=== PATIENT | female | born 1970 | race Caucasian/White ===

== ENCOUNTER 2019-10-26 13:52 | Emergency (ER) | payer MEDICAID ==
[~2019-10-26] VITALS: Ht 142.2 cm; Wt 74.8 kg
[2019-10-26 13:59] VITALS: BP 156/118
--- NOTE | 2019-10-26 14:05 | NUR ---
PT CAME TO THE ED C/O SORE THROAT AND COUGH W/ CONGESTION SINCE WEDNESDAY. PT DENIES ANY SOB OR FEVER. PT AAOX4, VSS, RESPIRATIONS EVEN AND UNLABORED ON RA W/ NAD NOTED. PT CONNECTED TO THE MONITOR AND POX
--- NOTE | 2019-10-26 14:49 | NUR ---
CALLED LAB FOR COVID SWAB
--- NOTE | 2019-10-26 15:10 | NUR ---
Patient discharged to home in stable condition. Written and verbal after care instructions given. Patient verbalizes understanding of instruction.
--- NOTE | 2019-10-27 12:53 | NUR ---
Negative COVID PCR results
== END 2019-10-26 15:10 | disposition home or self-care (01) ==
LOC: ER 14:00
DX: J06.9 Acute upper respiratory infection, unspecified (principal); R51 Headache; R05 Cough; Z20.828 Contact with and (suspected) exposure to other viral communicable diseases; I10 Essential (primary) hypertension; Z98.84 Bariatric surgery status; M19.90 Unspecified osteoarthritis, unspecified site
CPT/HCPCS: 99283; C9803; U0003

== ENCOUNTER 2019-12-13 19:35 | Emergency (ER) | payer MEDICAID ==
[~2019-12-13] VITALS: Ht 142.2 cm; Wt 74.8 kg
--- NOTE | 2019-12-13 19:38 | NUR ---
BIBSELF C/O L SIDED CP RADIATING TO L BACK. PT STATING SHE FEELS ANXIOUS S/P UNCLE AND HIS SON IN [facility]. RECOVERY SPECIALIST PLACED ON PT, MARKETING FINANCE MANAGER AT BEDSIDE FOR EVAL. AWAITING ORDERS.
[2019-12-13] MEDS ORDERED: ONDANSETRON HCL/PF 4 MG/2 ML VIAL ONE (19:48)
[2019-12-13] MEDS ORDERED: MORPHINE SULFATE INJ 4 MG/ML DISP.SYRIN ONE (19:49)
[2019-12-13] MEDS ORDERED: MORPHINE SULFATE INJ 2 MG/ML DISP.SYRIN IV ONE (20:00)
[2019-12-13] MEDS ORDERED: LORAZEPAM 1 MG TABLET PO ONE (20:00)
[2019-12-13] MEDS ORDERED: IV NS 0.9% 1,000 ML BAG IV ONE (20:00)
[2019-12-13] MEDS ORDERED: ONDANSETRON HCL/PF 4 MG/2 ML VIAL IVP ONE (20:00)
[2019-12-13] MEDS ORDERED: LORAZEPAM 1 MG TABLET ONE (20:05)
[2019-12-13 20:22] LABS: BASOPHILS % (AUTO) 0.3 % (0.0-2.0); EOSINOPHILS % (AUTO) 1.6 % (0.0-6.0); HEMATOCRIT 39 % (33-45); HEMOGLOBIN 13.2 g/dL (11.5-14.8); LYMPHOCYTES % (AUTO) 35.5 % (20.0-44.0); MEAN CORPUSCULAR HGB CONC 34 g/dl (31.0-36.0); MEAN CORPUSCULAR VOLUME 88 fL (82-100); MONOCYTES # (AUTO) 0.4 /CMM (0.1-1.30); MONOCYTES % (AUTO) 7.4 % (2.0-12.0); NEUTROPHILS # (AUTO) 3.2 /CMM (1.8-8.9); NEUTROPHILS % (AUTO) 55.2 % (43.0-81.0); PLATELET COUNT (AUTO) 209 /CMM (150-450); RED BLOOD CELL COUNT(AUTO) 4.43 MIL/uL (4.0-5.2); WHITE BLOOD COUNT (AUTO) 5.8 K/uL (4.3-11.0)
[2019-12-13 20:30] LABS: D-DIMER 0.27 mg/L(FEU (0.17-0.50)
[2019-12-13 20:36] LABS: CALCIUM, SERUM 9.3 mg/dL (8.5-10.1); CARBON DIOXIDE 27 mmol/L (21-32); CHLORIDE 104 mmol/L (98-107); CREATININE 0.6 mg/dL (0.6-1.3); GLUCOSE 87 mg/dL (74-106); POTASSIUM 3.6 mmol/L (3.5-5.1); SODIUM SERUM 138 mmol/L (136-145); UREA NITROGEN, BLOOD 22 mg/dL (7-18)
[2019-12-13 20:41] LABS: ALANINE AMINOTRANSFERASE 22 U/L (12-78); ALBUMIN 3.6 g/dL (3.4-5.0); ALKALINE PHOSPHATASE 41 U/L (46-116); ASPARTATE AMINOTRANSFERASE 13 U/L (15-37); BILIRUBIN,DIRECT 0.1 mg/dL (0.0-0.2); BILIRUBIN,TOTAL 0.3 mg/dL (0.2-1.0); TOTAL PROTEIN, SERUM 7.6 g/dL (6.4-8.2)
--- NOTE | 2019-12-13 20:58 | NUR ---
IV removed. Catheter intact and site benign. Pressure and 4x4 applied to site. No bleeding noted.
--- NOTE | 2019-12-13 20:58 | NUR ---
Patient discharged to home in stable condition. Written and verbal after care instructions given. Patient verbalizes understanding of instruction and RX. Pt ambulted wioth stedy gait. Stated she feels better. Denies pain. Ambulated with steady gait. vss.
[2019-12-13 21:00] VITALS: BP 127/74
== END 2019-12-13 21:35 | disposition home or self-care (01) ==
LOC: ER 19:37
DX: R07.89 Other chest pain (principal); R45.86 Emotional lability; R06.02 Shortness of breath; I10 Essential (primary) hypertension; M19.90 Unspecified osteoarthritis, unspecified site; Z98.890 Other specified postprocedural states
CPT/HCPCS: 36415; 71045; 80048; 80076; 84484; 85025; 85378; 85730; 93005; 96361; 96374; 96375; 99285; J2270; J2405; J7030

== ENCOUNTER 2020-01-17 18:38 | Inpatient (IN) | payer MEDICAID ==
[~2020-01-17] VITALS: Ht 142.2 cm; Wt 78.3 kg
--- NOTE | 2020-01-17 19:07 | NUR ---
BIBFAMILY FROM HOME TO ER BED 7. AAOX4, NOT IN RESP DISTRESS, BREATHING EVEN AND UNLABORED. AMBULATORY. CAME IN FOR L SIDED CHESP PAIN SINCE THIS MORNING AND WORSENING THE DAYS GOES BY. PT RATES HER PAIN 7/10 PRESSURE AND STABBING, RADIATING TO BACK AND L ARM. PT ALSO STATES THAT SHE IS FEELING NUMB ON THE L ARM. PT IS NOTED HYPERTENSIVE WITH SBP 170S. MD AT BEDSIDE FOR EVAL. VERBAL ORDER RECEIVED TO GIVE NITROGLYCERIN 0.4MG SL X 1. ORDERS NOTED AND CARRIED OUT
[2020-01-17] MEDS ORDERED: NITROGLYCERIN 0.4 MG/TAB BOTTLE ONE (19:17)
[2020-01-17] MEDS ORDERED: NITROGLYCERIN 0.4 MG/TAB BOTTLE SL ONE (19:30)
--- NOTE | 2020-01-17 19:32 | NUR ---
EKG DONE BY EMT
[2020-01-17 19:33] LABS: BASOPHILS % (AUTO) 0.5 % (0.0-2.0); EOSINOPHILS % (AUTO) 2.8 % (0.0-6.0); HEMATOCRIT 40 % (33-45); HEMOGLOBIN 13.7 g/dL (11.5-14.8); MEAN CORPUSCULAR HGB CONC 34 g/dl (31.0-36.0); MEAN CORPUSCULAR VOLUME 87 fL (82-100); MONOCYTES # (AUTO) 0.4 /CMM (0.1-1.30); MONOCYTES % (AUTO) 7.4 % (2.0-12.0); NEUTROPHILS # (AUTO) 3.1 /CMM (1.8-8.9); NEUTROPHILS % (AUTO) 54.3 % (43.0-81.0); PLATELET COUNT (AUTO) 228 /CMM (150-450); RED BLOOD CELL COUNT(AUTO) 4.59 MIL/uL (4.0-5.2); WHITE BLOOD COUNT (AUTO) 5.7 K/uL (4.3-11.0)
[2020-01-17 19:44] LABS: CALCIUM, SERUM 9.3 mg/dL (8.5-10.1); CARBON DIOXIDE 28 mmol/L (21-32); CHLORIDE 105 mmol/L (98-107); CREATININE 0.6 mg/dL (0.6-1.3); GLUCOSE 92 mg/dL (74-106); POTASSIUM 3.7 mmol/L (3.5-5.1); SODIUM SERUM 141 mmol/L (136-145); UREA NITROGEN, BLOOD 19 mg/dL (7-18)
[2020-01-17 19:49] LABS: ALANINE AMINOTRANSFERASE 20 U/L (12-78); ALBUMIN 3.8 g/dL (3.4-5.0); ALKALINE PHOSPHATASE 46 U/L (46-116); ASPARTATE AMINOTRANSFERASE 17 U/L (15-37); BILIRUBIN,DIRECT 0.1 mg/dL (0.0-0.2); BILIRUBIN,TOTAL 0.3 mg/dL (0.2-1.0); TOTAL PROTEIN, SERUM 7.7 g/dL (6.4-8.2)
--- NOTE | 2020-01-17 19:50 | NUR ---
MD MADE AWARE BP IS BETTER. PT IS STILL VERBALIZING NO RELIEF. MD ORDERED TO HOLD OFF ON GIVING THE 2ND AND 3RD DOSE OF NITRO. ORDER NOTED
--- NOTE | 2020-01-17 20:03 | NUR ---
COVID SWAB DONE AND SENT TO LAB
[2020-01-17] MEDS ORDERED: ASPIRIN 81 MG TAB.CHEW ONE (20:29)
[2020-01-17] MEDS ORDERED: ASPIRIN 81 MG TAB.CHEW PO ONE (20:30)
--- NOTE | 2020-01-17 20:53 | NUR ---
CALL FROM LAB, RAPID COVID NEGATIVE.
[2020-01-17] MEDS ORDERED: ACETAMINOPHEN 325 MG TABLET PO PRN (22:00)
[2020-01-17] MEDS ORDERED: HYDROCODONE/APAP 5/325MG TABLET PO PRN (22:00)
[2020-01-17] MEDS ORDERED: Z GUARD REMEDY 2 OZ OINT TP PRN (22:00)
[2020-01-17] MEDS ORDERED: ZOLPIDEM TARTRATE 5 MG TABLET PO PRN (22:00)
[2020-01-17] MEDS ORDERED: ONDANSETRON HCL/PF 4 MG/2 ML VIAL IVP PRN (22:00)
[2020-01-17] MEDS ORDERED: MAG HYDROX/AL HYDROX/SIMETH 30 ML UDC PO PRN (22:00)
[2020-01-17] MEDS ORDERED: MAGNESIUM HYDROXIDE 30 ML UDC PO PRN (22:00)
--- NOTE | 2020-01-17 22:10 | NUR ---
report given to jenn denton for andrea
[2020-01-17 22:18] VITALS: BP 155/98
--- NOTE | 2020-01-17 22:21 | NUR ---
Abena imna in [facility] - 01/17/20 at 2222 by JULIANA REPORT GIVEN TO SIDRA ALEXIS FOR ANABEL
--- NOTE | 2020-01-17 22:22 | NUR ---
PT TRANSPORTED TO UNIT ON [address] WITH EMT AND RN AT BEDSIDE W/ ACLS PROTOCOL. NAD NOTED DURING TRANSPORT. PT AMBULATED FROM GURNEY TO BED W/O ASSIST
[2020-01-17 22:30] VITALS: BP 153/98
--- NOTE | 2020-01-17 22:30 | NUR ---
RN ADMITTING NOTES PATIENT RECEIVED FROM ER VIA GURNEY ACCOMPANIED BY ER STAFF. PATIENT A/O X 4, AMBULATORY WITH STEADY GAIT. STABLE ON RA WITH BREATHING EVEN AND UNLABORED, NO SOB NOTED. NO SIGNS OF ACUTE DISTRESS. NO COMPLAINTS OF PAIN OR DISCOMFORT AT THE MOMENT. VITALS TAKEN. SKIN ASSESSMENT DONE. BELONGINGS ACCOUNTED FOR. IV LOCATED ON R AC #20 PATENT AND INTACT. TELE MONITORS PLACED. PATIENT ORIENTED TO ROOM AND STAFF. SAFETY PRECAUTIONS IN PLACE WITH BED IN LOWEST POSITION, CALL LIGHT WTHIN REACH, BREAKS ON, FINAL INSPECTOR AILS UP. WILL CONTINUE TO MONITOR THROUGHOUT THEN NIGHT.
[2020-01-18] VITALS: BP 102/67
[2020-01-18] MEDS ORDERED: OLOP2.5D12 EACHEYE (00:19)
[2020-01-18] MEDS ORDERED: IBUP-1957 PO (00:19)
[2020-01-18] MEDS ORDERED: LORA10TA7 PO (00:19)
[2020-01-18] MEDS ORDERED: LISI10TA5 PO (00:19)
[2020-01-18] MEDS ORDERED: HYDR200T4 PO (00:19)
[2020-01-18] MEDS ORDERED: DIPH50CA38 PO (00:19)
[2020-01-18] MEDS ORDERED: OMEP20CA15 PO (00:19)
[2020-01-18] MEDS ORDERED: DULO60CA45 PO (00:19)
[2020-01-18] MEDS ORDERED: IBUP100O19 PO (00:19)
[2020-01-18] MEDS: diphenhydrAMINE HCL 50 MG CAPSULE PO SCH ×2 (06:00→12:00)
[2020-01-18 06:08] LABS: BASOPHILS % (AUTO) 0.8 % (0.0-2.0); EOSINOPHILS % (AUTO) 3.6 % (0.0-6.0); HEMATOCRIT 39 % (33-45); HEMOGLOBIN 13.4 g/dL (11.5-14.8); LYMPHOCYTES # (AUTO) 2.1 /CMM (0.8-4.8); LYMPHOCYTES % (AUTO) 41.1 % (20.0-44.0); MEAN CORPUSCULAR HGB CONC 34 g/dl (31.0-36.0); MEAN CORPUSCULAR VOLUME 89 fL (82-100); MONOCYTES # (AUTO) 0.4 /CMM (0.1-1.30); MONOCYTES % (AUTO) 8.5 % (2.0-12.0); NEUTROPHILS # (AUTO) 2.4 /CMM (1.8-8.9); PLATELET COUNT (AUTO) 193 /CMM (150-450); RED BLOOD CELL COUNT(AUTO) 4.43 MIL/uL (4.0-5.2); WHITE BLOOD COUNT (AUTO) 5.2 K/uL (4.3-11.0)
--- NOTE | 2020-01-18 06:37 | NUR ---
RN CLOSING NOTES PATIENT SLEEPING IN BED, A/O X 4. STABLE ON RA WITH BREATHING EVEN AND UNLABORED, NO SOB NOTED. NO SIGNS OF ACUTE DISTRESS. NO COMPLAINTS OF PAIN OR DISCOMFORT AT THE MOMENT. TELE MONITOR READING SB. IV LOCATED ON R AC #20 PATENT AND INTACT. SAFETY PRECAUTIONS IN PLACE WITH BED IN LOWEST POSITION, CALL LIGHT WITHIN REACH, BREAKS ON, SIDE RAILS UP. WILL ENDORSE TO ONCOMING SHIFT ABOUT ANABEL.
[2020-01-18 06:38] LABS: CALCIUM, SERUM 9.1 mg/dL (8.5-10.1); CREATININE 0.6 mg/dL (0.6-1.3); MAGNESIUM 2.1 mg/dL (1.8-2.4); PHOSPHORUS 4.6 mg/dL (2.5-4.9); POTASSIUM 3.4 mmol/L (3.5-5.1)
[2020-01-18 07:01] LABS: THYROID STIMULATING HORMONE 2.644 uIU/mL (0.358-3.74)
[2020-01-18] MEDS ORDERED: PANTOPRAZOLE 40 MG TABLET.DR PO SCH (07:30)
[2020-01-18 08:00] VITALS: BP 102/61
[2020-01-18] MEDS ORDERED: LORATADINE 10 MG TABLET PO SCH (09:00)
[2020-01-18] MEDS ORDERED: LISINOPRIL (10MG) 10 MG TABLET PO SCH (09:00)
[2020-01-18] MEDS ORDERED: ASPIRIN 81 MG TAB.CHEW PO SCH (09:00)
[2020-01-18 09:12] VITALS: BP 102/61
--- NOTE | 2020-01-18 10:30 | NUR ---
Patient seen by dr. Bryson .
[2020-01-18] MEDS ORDERED: POTASSIUM CHLORIDE 20 MEQ TAB.PRT.SR PO ONE (11:00)
--- NOTE | 2020-01-18 12:20 | NUR ---
Patient cleared for discharge to home by MD. PAtient alert and oriented x4 , breathing unlabored and even on room air, saturation above 95%. patient denies any pain or discomfort at this time. Per dr. Bryson patient need to f/u with PCP in one week ; patient verbalized understanding. Education and d/c instructions provided to patient and patient verbalized understanding instructions given . Pt sighed d/c instructions and valuable form and all belongings with the patient. Patient has no skin issues.IV line removed and ID wrist Band removed. Patient safely transferred to [facility] and picked up by .
== END 2020-01-18 12:20 | disposition home or self-care (01) | DRG 203 ==
LOC: ER 18:41 → MED 22:05 → TELE 22:31
PROVIDERS: ADMIT Student in an Organized Health Care Education/Training Program; ATTEND Internal Medicine
DX: R07.89 Other chest pain (principal); F41.9 Anxiety disorder, unspecified; M06.9 Rheumatoid arthritis, unspecified; I10 Essential (primary) hypertension; E66.9 Obesity, unspecified; F32.9 Major depressive disorder, single episode, unspecified; Z68.38 Body mass index [BMI] 38.0-38.9, adult
CPT/HCPCS: 36415; 71045-TC; 80048-TC; 80061-TC; 80076-TC; 83735-TC; 84100-TC; 84443-TC; 84484-TC; 85025-TC; 87081-TC; 93307-TC; C9803; G0378; Q0163

== ENCOUNTER 2020-01-31 14:20 | Inpatient (IN) | payer MEDICAID ==
[~2020-01-31] VITALS: Ht 142.2 cm; Wt 76.7 kg
[~2020-01-31 14:20] MED LIST: DIPH50CA38 PO; DULO60CA45 PO; HYDR200T4 PO; IBUP-1957 PO; IBUP100O19 PO; LISI10TA5 PO; LORA10TA7 PO; OLOP2.5D12 EACHEYE; OMEP20CA15 PO
--- NOTE | 2020-01-31 15:01 | NUR ---
SPO2 87-88% ON EXERTION. DR. MASCORRO MADE AWARE.
--- NOTE | 2020-01-31 15:02 | NUR ---
PT BIBSELF C/O CHILLS, FEVER, COUGH/CONGESTION & SORETHROAT SINCE THIS AM. VS CHECKED. SEEN BY
[2020-01-31] MEDS ORDERED: ACETAMINOPHEN ES 500 MG TABLET PO ONE ×2 (15:30→20:00)
--- NOTE | 2020-01-31 15:41 | NUR ---
COVID AND FLU SWAB DONE AND SENT TO LAB
[2020-01-31] MEDS ORDERED: ACETAMINOPHEN ES 500 MG TABLET ONE ×2 (15:42→20:10)
[2020-01-31 16:15] LABS: BASOPHILS % (AUTO) 0.1 % (0.0-2.0); EOSINOPHILS % (AUTO) 0.8 % (0.0-6.0); HEMATOCRIT 40 % (33-45); HEMOGLOBIN 13.4 g/dL (11.5-14.8); LYMPHOCYTES # (AUTO) 0.8 /CMM (0.8-4.8); LYMPHOCYTES % (AUTO) 7.3 % (20.0-44.0); MEAN CORPUSCULAR HGB CONC 33 g/dl (31.0-36.0); MEAN CORPUSCULAR VOLUME 87 fL (82-100); MONOCYTES # (AUTO) 0.6 /CMM (0.1-1.30); MONOCYTES % (AUTO) 4.8 % (2.0-12.0); PLATELET COUNT (AUTO) 192 /CMM (150-450); RED BLOOD CELL COUNT(AUTO) 4.62 MIL/uL (4.0-5.2); WHITE BLOOD COUNT (AUTO) 11.5 K/uL (4.3-11.0)
[2020-01-31 16:28] LABS: CARBON DIOXIDE 27 mmol/L (21-32); CHLORIDE 103 mmol/L (98-107); CREATININE 0.6 mg/dL (0.6-1.3); GLUCOSE 106 mg/dL (74-106); POTASSIUM 3.4 mmol/L (3.5-5.1); SODIUM SERUM 138 mmol/L (136-145); UREA NITROGEN, BLOOD 17 mg/dL (7-18)
[2020-01-31 16:36] LABS: D-DIMER 0.55 mg/L(FEU (0.17-0.50)
--- NOTE | 2020-01-31 16:42 | NUR ---
MOVE SHEET SUBMITTED AND CALLED FOR TELE BED.
[2020-01-31 16:45] LABS: ALANINE AMINOTRANSFERASE 17 U/L (12-78); ALBUMIN 3.6 g/dL (3.4-5.0); ALKALINE PHOSPHATASE 43 U/L (46-116); ASPARTATE AMINOTRANSFERASE 12 U/L (15-37); B-TYPE NATRIURETIC PEPTIDE 78 PG/ML (0-125); BILIRUBIN,TOTAL 0.5 mg/dL (0.2-1.0); CREATINE KINASE, TOTAL 49 U/L (26-192); FERRITIN 28 ng/mL (8-388); TOTAL PROTEIN, SERUM 7.6 g/dL (6.4-8.2)
[2020-01-31 16:46] LABS: C-REACTIVE PROTEIN 1.4 mg/dL (0.0-0.9)
[2020-01-31] MEDS ORDERED: TRAM50TA2 PO (16:53)
[2020-01-31] MEDS ORDERED: ERGO500014 PO (16:56)
[2020-01-31] MEDS ORDERED: DOCU-141 PO (17:00)
[2020-01-31 17:03] LABS: BILIRUBIN,URINE Negative (NEGATIVE); BLOOD, URINE Small Ery/uL (NEGATIVE); COLOR,URINE YELLOW (YELLOW); LEUKOCYTE ESTERASE ,URINE Negative (NEGATIVE); NITRITE, URINE Negative (NEGATIVE); PROTEIN,URINE Negative (NEGATIVE); UGLUCOSE Negative (NEGATIVE); UROBILINOGEN,URINE 0.2 EU/dL (0.2)
[2020-01-31 17:31] LABS: BACTERIA,URINE Rare /HPF (None Seen); SQUAMOUS EPITHELIAL CELL,UR Rare /HPF (None Seen); WBC,URINE 0-2 /HPF (0-3)
[2020-01-31] MEDS ORDERED: IOHEXOL-350 100 ML VIAL IV ONE (17:44)
[2020-01-31] MEDS ORDERED: CT SWABBABLE VALVE TRANS SET 1 EA INFUS.SET MC ONE (17:44)
[2020-01-31] MEDS ORDERED: IV NS 0.9% 250 ML IV ONE (17:44)
--- NOTE | 2020-01-31 17:51 | NUR ---
[facility] CALLED MARBLE CLEANER PAGED.
--- NOTE | 2020-01-31 19:15 | NUR ---
recieved report from jenn Patel, assumed care of pt. Pt presents to the ER with fever. Upon assessment, temp was 98.5, vss, breathing evenly and unlabored. Pt connected to the monitor and pox. Pt AAOx4 asking for food. Provided food and blanket. Call light within reach. Will continue to monitor.
--- NOTE | 2020-01-31 21:29 | NUR ---
Gave report to SIDRA Ayon, for andrea
--- NOTE | 2020-01-31 22:00 | NUR ---
ADMITTED PATIENT FROM ER TO ROOM 104 VIA GURNEY. PATIENT ALERT AND ORIENTED X4. ABLE TO MAKE NEEDS KNOWN. ON ROOM AIR, O2 SAT 97%. NO SOB OR ANY RESPIRATORY DISTRESS. NON-PRODUCTIVE COUGH NOTED, NO FEVER AT THIS TIME. TELE MONITOR ON, HR 62. SKIN IS INTACT. VITAL SIGNS CHECKED AND RECORDED. WITH IV ON RIGHT AC, PATENT AND FLUSHED. BED LOCKED AND IN LOWEST POSITION. SIDE RAILS UP X2. SAFETY MEASURES IMPLEMENTED. CALL LIGHT WITHIN REACH. WILL CONTINUE TO MONITOR.
[2020-02-01] VITALS: BP 147/73
[2020-02-01] MEDS ORDERED: TRAMADOL HCL 50 MG TABLET PO PRN ×2 (00:30→09:30)
[2020-02-01] MEDS ORDERED: diphenhydrAMINE HCL 25 MG CAPSULE PO PRN (00:30)
[2020-02-01] MEDS ORDERED: ACETAMINOPHEN 325 MG TABLET PO PRN (00:30)
[2020-02-01] MEDS ORDERED: ZOLPIDEM TARTRATE 5 MG TABLET PO PRN (00:30)
[2020-02-01] MEDS ORDERED: AZITHROMYCIN 500 MG VIAL ONE (02:00)
[2020-02-01] MEDS: AZITHROMYCIN 500 MG in IV D5W 250 ML IV SCH (02:12)
[2020-02-01] MEDS ORDERED: CEFTRIAXONE 1 G VIAL ONE (02:25)
--- NOTE | 2020-02-01 03:00 | NUR ---
0300 PATIENT WITH COMPLAIN OF ACID REFLUX, DR. KHOURY MADE AWARE WITH ORDER FOR PROTONIX 40MG PO DAILY. ORDER NOTED AND CARRIED OUT.
[2020-02-01] MEDS: CEFTRIAXONE 1 G in IV D5W 50 ML IV SCH (03:54)
--- NOTE | 2020-02-01 03:54 | NUR ---
ROCEPHIN 1 GM GIVEN AT THIS TIME.
[2020-02-01 04:00] VITALS: BP 128/79
[2020-02-01] MEDS ORDERED: PANTOPRAZOLE 40 MG TABLET.DR PO ONE (06:05)
[2020-02-01 06:21] LABS: BASOPHILS % (AUTO) 0.3 % (0.0-2.0); EOSINOPHILS % (AUTO) 2.9 % (0.0-6.0); HEMATOCRIT 38 % (33-45); LYMPHOCYTES % (AUTO) 32.2 % (20.0-44.0); MEAN CORPUSCULAR HGB CONC 34 g/dl (31.0-36.0); MEAN CORPUSCULAR VOLUME 87 fL (82-100); MONOCYTES # (AUTO) 0.4 /CMM (0.1-1.30); MONOCYTES % (AUTO) 7.4 % (2.0-12.0); NEUTROPHILS # (AUTO) 3.5 /CMM (1.8-8.9); NEUTROPHILS % (AUTO) 57.2 % (43.0-81.0); PLATELET COUNT (AUTO) 195 /CMM (150-450); RED BLOOD CELL COUNT(AUTO) 4.38 MIL/uL (4.0-5.2); WHITE BLOOD COUNT (AUTO) 6.1 K/uL (4.3-11.0)
--- NOTE | 2020-02-01 06:38 | NUR ---
PATIENT REQUESTING FOR PROTONIX 40 MG AT THIS TIME. CHARGE NURSE MADE AWARE. ADMINISTERED PROTONIX 40 MG TAB AT THIS TIME. WILL ENDORSE TO AM SHIFT.
[2020-02-01 07:12] LABS: CALCIUM, SERUM 8.9 mg/dL (8.5-10.1); CREATININE 0.5 mg/dL (0.6-1.3); POTASSIUM 3.3 mmol/L (3.5-5.1)
--- NOTE | 2020-02-01 07:51 | NUR ---
RN NOTES PATIENT A/O X4. ABLE TO VERBALIZE NEEDS. ON ROOM AIR, O2 SAT 98%. NO SOB, BREATHING EVEN AND UNLABORED. NO FEVER DURING THIS SHIFT. TELE MONITOR, HR 58. IV RIGHT AC INTACT AND PATENT. BED LOCKED AND IN LOWEST POSITION. SIDE RAILS UP X 2. SAFETY MEASURES IMPLEMENTED. CALL LIGHT WITHIN REACH. ENDORSED TO ONCOMING SHIFT.
--- NOTE | 2020-02-01 08:00 | NUR ---
RN Opening note Received patient in bed AO x 4 able to responds all stimuli, does no c/o pain or discomfort. Skin is warm to touch keep clean/dry, intact IV site on right AC 20g with SL. Respiratory even and unlabored on room air, no sob or distress observed. Kept bed locked with elevated HOB for ensure airway and aspiration precaution also lowest bed position for safety. Call light within reach will continue to monitor.
[2020-02-01] MEDS ORDERED: POTASSIUM CHLORIDE 20 MEQ TAB.PRT.SR PO ONE (09:00)
[2020-02-01] MEDS: PANTOPRAZOLE 40 MG TABLET.DR PO SCH (09:00)
[2020-02-01] MEDS ORDERED: DOCUSATE SODIUM 100 MG CAPSULE PO PRN (09:30)
[2020-02-01] MEDS ORDERED: diphenhydrAMINE HCL 50 MG CAPSULE PO PRN (09:30)
[2020-02-01] MEDS: ENOXAPARIN SODIUM 40 MG/0.4 ML DISP.SYRIN SQ SCH (09:56)
[2020-02-01] MEDS: DEXAMETHASONE SOD PHOSPHATE 10 MG/ML VIAL IV SCH (09:58)
[2020-02-01] MEDS ORDERED: IBUPROFEN 600 MG TABLET PO PRN (10:00)
[2020-02-01] MEDS: HYDROXYCHLOROQUINE 200 MG TABLET PO SCH (17:04)
--- NOTE | 2020-02-01 18:10 | NUR ---
Patient c/o acidic stomach, received new order: Maalox 30ml po [id number] prn by Dr. Braydon jamison. Noted and carry out.
[2020-02-01] MEDS ORDERED: MAG HYDROX/AL HYDROX/SIMETH 30 ML UDC PO PRN (18:30)
--- NOTE | 2020-02-01 18:31 | NUR ---
RN Closing note Patient in bed resting, does no appears pain or distress. Skin is warm to touch intact IV site with SL, patient c/o acidic stomach and placed new order, no further discomfort observed. Respiratory even and unlabored on room air O2sat 96%. Kept locked bed with elevated HOB for ensure airway and aspiration precaution also lowest position for safety, call light within reach, will endorse night nurse.
[2020-02-01 20:00] VITALS: BP 122/88
--- NOTE | 2020-02-01 20:00 | NUR ---
RN NOTE RECEIVED PT IN BED, PT IS A/A/O X4. ON ROOM AIR, HAS UNLABORED BREATHING.SAFETY MEASURE IN PLACE
[2020-02-02] VITALS: BP 132/81
[2020-02-02] MEDS: AZITHROMYCIN 500 MG in IV D5W 250 ML IV SCH (00:07)
[2020-02-02] MEDS: CEFTRIAXONE 1 G in IV D5W 50 ML IV SCH (01:46)
[2020-02-02 04:00] VITALS: BP 133/67
[2020-02-02 05:52] LABS: BASOPHILS % (AUTO) 0.1 % (0.0-2.0); EOSINOPHILS % (AUTO) 0.4 % (0.0-6.0); HEMATOCRIT 39 % (33-45); HEMOGLOBIN 13.1 g/dL (11.5-14.8); LYMPHOCYTES # (AUTO) 2.1 /CMM (0.8-4.8); LYMPHOCYTES % (AUTO) 31.3 % (20.0-44.0); MEAN CORPUSCULAR HGB CONC 34 g/dl (31.0-36.0); MEAN CORPUSCULAR VOLUME 87 fL (82-100); MONOCYTES # (AUTO) 0.5 /CMM (0.1-1.30); MONOCYTES % (AUTO) 7.5 % (2.0-12.0); NEUTROPHILS # (AUTO) 4.1 /CMM (1.8-8.9); NEUTROPHILS % (AUTO) 60.7 % (43.0-81.0); PLATELET COUNT (AUTO) 226 /CMM (150-450); RED BLOOD CELL COUNT(AUTO) 4.46 MIL/uL (4.0-5.2); WHITE BLOOD COUNT (AUTO) 6.8 K/uL (4.3-11.0)
[2020-02-02 06:10] LABS: CALCIUM, SERUM 9.1 mg/dL (8.5-10.1); CREATININE 0.5 mg/dL (0.6-1.3); POTASSIUM 3.5 mmol/L (3.5-5.1)
--- NOTE | 2020-02-02 07:06 | NUR ---
MUSIC COMPOSITION TEACHER OPENING NOTES RECEIVED PT AWAKE IN BED AT THIS TIME. PT AOX4. PT ABLE TO VERBALIZE NEEDS. NO SOB NOTED, NO S/S OF ANY ACUTE DISTRESS NOTED. NO C/O PAIN AT THIS TIME. RESPIRATIONS ARE EVEN AND UNLABORED WITH EQUAL RISE AND FALL IN CHEST. PT STABLE ON RA. IV ACCESS NOTED IN RAC G#18, INTACT, PATENT AND FLUSHING WELL. PT ON EXTERNAL TELE BOARD DESIGN ENGINEER READING ST IN THE 100s. ASPIRATION AND SAFETY PRECAUTION IN PLACE AND MAINTAINED AT ALL TIMES. BED IN LOWEST LOCKED POSITION, HOB ELEVATED, SIDE RAILS UP X 2, CALL LIGHT AND TABLE WITHIN REACH. WILL CONTINUE TO MONITOR
[2020-02-02] MEDS ORDERED: OMEPRAZOLE 20 MG CAPSULE.DR PO SCH (07:30)
--- NOTE | 2020-02-02 07:33 | NUR ---
RN NOTE PT STAYED STABLE NO ACUTE CHANGES REPORT GIVEN FOR ANABEL.
[2020-02-02 08:00] VITALS: BP 129/69
[2020-02-02] MEDS: HYDROXYCHLOROQUINE 200 MG TABLET PO SCH ×2 (09:29→16:26)
[2020-02-02] MEDS: PANTOPRAZOLE 40 MG TABLET.DR PO SCH (09:29)
[2020-02-02] MEDS: LORATADINE 10 MG TABLET PO SCH (09:29)
[2020-02-02] MEDS: LISINOPRIL (10MG) 10 MG TABLET PO SCH (09:29)
[2020-02-02] MEDS: DEXAMETHASONE SOD PHOSPHATE 10 MG/ML VIAL IV SCH (09:30)
[2020-02-02] MEDS: ENOXAPARIN SODIUM 40 MG/0.4 ML DISP.SYRIN SQ SCH (09:31)
[2020-02-02 12:00] VITALS: BP 139/73
[2020-02-02 16:00] VITALS: BP 107/60
--- NOTE | 2020-02-02 18:52 | NUR ---
TRAINING PROGRAM DEVELOPER CLOSING NOTES PT AWAKE IN BED AT THIS TIME. PT REMAINED STABLE THROUGHOUT SHIFT. ALL CARE, NEED, MEDICATIONS AND TREATMENT ADMINISTERED ANTICIPATED PER ORDER. PT KEPT CLEAN AND DRY. ASPIRATION AND SAFETY PRECAUTION IN PLACE AND MAINTAINED AT ALL TIMES. BED IN LOWEST LOCKED POSITION, HOB ELEVATED, SIDE RAILS UP X 2, CALL LIGHT AND TABLE WITHIN REACH. WILL ENDORSE TO DICE MAKER NURSE FOR ANABLE
--- NOTE | 2020-02-02 19:00 | NUR ---
PT UPDATED ON DR KHOURY ORDER FOR ANOTHER COVID SWAB. PT REFUSED TO BE SWAB STATING "ITS BEEN THREE DAYS AND PREVIOUS IS STILL PENDING." RONAL, PARACHUTE SUPERVISOR MADE AWARE AND WILL FOLLOW UP. SOON, CHARGE NURSE AND DR KHOURY MADE AWARE. ENDORSED TO BARBER ACCESS SERVICES LIBRARIAN NURSE.
--- NOTE | 2020-02-02 19:41 | NUR ---
TELE-1/MOTOR AND GENERATOR BRUSH CUTTER SPOKE WITH PT, PT UPSET COVID PCR RESULTS NOT RESULTED AFTER 3 DAYS. PT IS REFUSING NEW SWAB. PT WANTS TO SPEAK WITH NURSING PIECE DYER. SHELLEY NURSING PIECE DYER MADE AWARE. WILL CONTINUE TO MONITOR
[2020-02-02 20:00] VITALS: BP 116/74
[2020-02-03] VITALS: BP 121/82
[2020-02-03] MEDS: CEFTRIAXONE 1 G in IV D5W 50 ML IV SCH (00:06)
[2020-02-03] MEDS: AZITHROMYCIN 500 MG in IV D5W 250 ML IV SCH (01:00)
[2020-02-03 04:00] VITALS: BP 108/76
--- NOTE | 2020-02-03 07:15 | NUR ---
RN OPENING NOTE - TELE Received patient awake in bed appears calm and relaxed. No signs of distress. On room air tolerating well o2 sat 93-95%. Tele monitor reading SB-SR 55-70s. Has R AC #18 flushes well. No co pain or discomfort. Safety measures maintained. Call light within reach. Will cont to monitor.
[2020-02-03 08:00] VITALS: BP 114/75
[2020-02-03] MEDS: LORATADINE 10 MG TABLET PO SCH (08:33)
[2020-02-03] MEDS: DEXAMETHASONE SOD PHOSPHATE 10 MG/ML VIAL IV SCH (08:33)
[2020-02-03] MEDS: LISINOPRIL (10MG) 10 MG TABLET PO SCH (08:36)
[2020-02-03] MEDS: PANTOPRAZOLE 40 MG TABLET.DR PO SCH (08:37)
--- NOTE | 2020-02-03 08:56 | NUR ---
followup with lab PCR RESULT STILL PENDING,per DR. KHOURY need to ff. up result again in the afternoon if positve will give script for steroid po and if negative will give script for antibiotic.primary rn made aware.
[2020-02-03] MEDS: ENOXAPARIN SODIUM 40 MG/0.4 ML DISP.SYRIN SQ SCH (09:00)
--- NOTE | 2020-02-03 09:30 | NUR ---
PATIENT COMPLAINED OF HAVING BURNING AND ITCHING SENSATION WHEN DECADRON WAS GIVEN. INFORMED DR KHOURY WITH ORDERS TO DISCONTINUE DECADRON.
[2020-02-03] MEDS: HYDROXYCHLOROQUINE 200 MG TABLET PO SCH ×2 (11:35→16:54)
[2020-02-03 12:00] VITALS: BP 146/85
[2020-02-03 16:00] VITALS: BP 114/62
--- NOTE | 2020-02-03 17:35 | NUR ---
INFORMED DR KHOURY PATIENT IS GETTING ANXIOUS AND ANGRY ABOUT NOT BEING ABLE TO GO HOME. CALLED DR KHOURY. HE ORDERED FOR DISCHARGE WITH MED ORDER FOR AUGMENTIN PRESCRIPTION. GAVE DISCHARGE PAPERS AND INSTRUCTIONS TO PATIENT TO SELF ISOLATION AND FOLLOW UP WITH PCP IN 1 WEEK. REMOVED IV SITE NO BLEEDING. SHE WILL GET PICKED UP BY SON. ALL BELONGINGS PRESENT AND FORM SIGNED.
--- NOTE | 2020-02-03 17:48 | NUR ---
PATIENT WAS ESCORTED TO THE MAIN LOBBY WITH HER BELONGINGS
[2020-02-07] MEDS ORDERED: ERGOCALCIFEROL (VITAMIN D 2) 50,000 UNIT CAPSULE PO SCH (09:30)
== END 2020-02-03 17:48 | disposition home or self-care (01) | DRG 139 ==
LOC: ER 14:29 → TELE1 17:45 → UNDOADMIN 17:45 → TELE1 21:27
PROVIDERS: ADMIT Family Medicine; ATTEND Internal Medicine
DX: J15.9 Unspecified bacterial pneumonia (principal); J96.01 Acute respiratory failure with hypoxia; I10 Essential (primary) hypertension; E66.9 Obesity, unspecified; F32.9 Major depressive disorder, single episode, unspecified; F41.9 Anxiety disorder, unspecified; Z20.828 Contact with and (suspected) exposure to other viral communicable diseases; Z68.37 Body mass index [BMI] 37.0-37.9, adult; M06.9 Rheumatoid arthritis, unspecified; J12.9 Viral pneumonia, unspecified
CPT/HCPCS: 36415; 71046; 80048-TC; 80053-TC; 81001; 82550-TC; 82728-TC; 83605-TC; 83615-TC; 83880; 84484-TC; 85025-TC; 85378-TC; 85730-TC; 86140-TC; 87040-TC; 87081-TC; A4349; C9803; G0378; J0456; J0696; J1100; J1650; J7050; J7060; Q9967; U0003

== ENCOUNTER 2020-03-16 16:47 | Emergency (ER) | payer MEDICAID ==
[~2020-03-16] VITALS: Ht 142.2 cm; Wt 73.9 kg
[~2020-03-16 16:47] MED LIST changes: +DOCU-141 PO; +ERGO500014 PO; -IBUP100O19 PO; +TRAM50TA2 PO
--- NOTE | 2020-03-16 16:47 | NUR ---
PT BIB SELF C/O LOW BACK PAIN AND NAUSEA. PT IS AAOX4, NOT IN RESPIRATORY DISTRESS, V/S STABLE, KEPT RESTED AND COMFORTABLE. WILL CONTINUE MARIA TERESA MONITOR.
--- NOTE | 2020-03-16 17:06 | NUR ---
SEEN AND EXAMINED BY .
[2020-03-16] MEDS ORDERED: MORPHINE SULFATE INJ 4 MG/ML DISP.SYRIN ONE (17:10)
[2020-03-16] MEDS ORDERED: MORPHINE SULFATE INJ 2 MG/ML DISP.SYRIN ONE (17:10)
--- NOTE | 2020-03-16 17:10 | NUR ---
URINE SPECIMEN COLLECTED AND SENT TO LAB.
--- NOTE | 2020-03-16 17:20 | NUR ---
PT IS WHEELED TO CT SCAN VIA [facility].
[2020-03-16 17:22] LABS: BILIRUBIN,URINE Negative (NEGATIVE); COLOR,URINE YELLOW (YELLOW); LEUKOCYTE ESTERASE ,URINE Trace (NEGATIVE); NITRITE, URINE Negative (NEGATIVE); PROTEIN,URINE Trace mg/dl (NEGATIVE); UGLUCOSE Negative (NEGATIVE); UROBILINOGEN,URINE 0.2 EU/dL (0.2)
[2020-03-16] MEDS ORDERED: MORPHINE SULFATE INJ 2 MG/ML DISP.SYRIN IM ONE (17:30)
[2020-03-16 17:34] LABS: CALCIUM OXALATE CRYSTALS,UR Few /HPF (None Seen); SQUAMOUS EPITHELIAL CELL,UR Few /HPF (None Seen)
[2020-03-16 17:35] LABS: BACTERIA,URINE Few /HPF (None Seen); WBC,URINE 0-2 /HPF (0-3)
[2020-03-16 17:58] VITALS: BP 128/81
--- NOTE | 2020-03-16 17:58 | NUR ---
Patient discharged to home in stable condition. Written and verbal after care instructions given. Patient verbalizes understanding of instruction.
== END 2020-03-16 17:58 | disposition home or self-care (01) ==
LOC: ER 16:51
DX: M54.42 Lumbago with sciatica, left side (principal); I10 Essential (primary) hypertension; F41.9 Anxiety disorder, unspecified; M19.90 Unspecified osteoarthritis, unspecified site; Z98.890 Other specified postprocedural states; Z79.899 Other long term (current) drug therapy
CPT/HCPCS: 72131; 81001; 96372; 99284; J2270 ×2

== ENCOUNTER 2020-09-18 10:10 | Emergency (ER) | payer MEDICAID ==
[~2020-09-18] VITALS: Ht 165.1 cm; Wt 74.4 kg
[~2020-09-18 10:10] MED LIST changes: -ERGO500014 PO; +ERGO500093 PO; +LISI10TA29 PO; -LISI10TA5 PO
--- NOTE | 2020-09-18 10:30 | NUR ---
[id number] HOME, NEAR [place] EARLIER TODAY. ANXIOUS SENIOR LABORATORY TECHNICIAN. BG 103. PATIENT A/OX4, BREATHING EVEN AND UNLABORED, NO SOB NOTED. NEEDS ATTENDED. KEPT COMFORTABLE.
[2020-09-18] MEDS ORDERED: LORAZEPAM INJ 2 MG/ML VIAL ONE (10:34)
[2020-09-18] MEDS: IV NS 0.9% 1,000 ML BAG IV ONE (10:40)
[2020-09-18] MEDS: LORAZEPAM INJ 2 MG/ML VIAL IV ONE (10:41)
[2020-09-18 10:46] LABS: BASOPHILS % (AUTO) 0.8 % (0.0-2.0); EOSINOPHILS % (AUTO) 1.3 % (0.0-6.0); HEMATOCRIT 42 % (33-45); HEMOGLOBIN 14.5 g/dL (11.5-14.8); LYMPHOCYTES # (AUTO) 2.2 K/uL (0.8-4.8); LYMPHOCYTES % (AUTO) 45.5 % (20.0-44.0); MEAN CORPUSCULAR HGB CONC 34 g/dl (31.0-36.0); MEAN CORPUSCULAR VOLUME 86 fL (82-100); MONOCYTES # (AUTO) 0.4 K/uL (0.1-1.30); MONOCYTES % (AUTO) 7.9 % (2.0-12.0); NEUTROPHILS # (AUTO) 2.2 K/uL (1.8-8.9); NEUTROPHILS % (AUTO) 44.5 % (43.0-81.0); PLATELET COUNT (AUTO) 250 K/uL (150-450); RED BLOOD CELL COUNT(AUTO) 4.92 MIL/uL (4.0-5.2); WHITE BLOOD COUNT (AUTO) 4.9 K/uL (4.3-11.0)
--- NOTE | 2020-09-18 10:47 | NUR ---
GOLF MANAGER AT BEDSIDE FOR BLOOD DRAW.
[2020-09-18 11:02] LABS: ALANINE AMINOTRANSFERASE 26 U/L (12-78); ALBUMIN 3.6 g/dL (3.4-5.0); ALKALINE PHOSPHATASE 58 U/L (46-116); ASPARTATE AMINOTRANSFERASE 17 U/L (15-37); BILIRUBIN,DIRECT 0.1 mg/dL (0.0-0.2); BILIRUBIN,TOTAL 0.6 mg/dL (0.2-1.0); CARBON DIOXIDE 25 mmol/L (21-32); CHLORIDE 107 mmol/L (98-107); CREATININE 0.6 mg/dL (0.6-1.3); GLUCOSE 93 mg/dL (74-106); POTASSIUM 3.5 mmol/L (3.5-5.1); SODIUM SERUM 142 mmol/L (136-145); TOTAL PROTEIN, SERUM 7.7 g/dL (6.4-8.2); UREA NITROGEN, BLOOD 19 mg/dL (7-18)
[2020-09-18] MEDS ORDERED: ONDANSETRON HCL/PF 4 MG/2 ML VIAL ONE (11:44)
[2020-09-18] MEDS: ONDANSETRON HCL/PF - ER 4 MG/2 ML VIAL IV ONE (11:47)
--- NOTE | 2020-09-18 11:50 | NUR ---
Excavator Backhoe Operator consult: park services specialist consult requested for anxiety. Patient is a 50-year-old, female. Per chart, patient was brought in by ambulance from home on 09/18/20 for complaints of shortness of breath and nausea. Patient has a history of Anxiety and panic attacks. Patient is currently living with her family at [address] [place] [address]; [phone]. Patient stated that she receives [facility] as a source of income. SW asked the patient about the situation which brought her to the hospital. Patient reported, "I was feeling dizzy and sweating." Patient stated that she eventually fell down onto the floor due to feeling dizzy. Patient stated that she has a history of Anxiety and panic attacks. Patient stated that she has been taking psychiatric medication but was unable to recall the name of the medication. SW asked the patient if she has been seeing an outpatient therapist or psychiatrist. Patient reported that she has been seeing a therapist and psychiatrist regularly for the last 2-3 years. SW encouraged the patient to follow up with her psychiatrist for medication review and management. Patient agreed to follow up. Patient denied history of substance use. Patient denied suicidal or homicidal ideation. SW offered the patient outpatient mental health resources. Patient declined the resources and thanked JAIRO stating that she has adequate mental health resources at this time. JAIRO discussed discharge plans with the patient. Patient stated that she will return to her prior living arrangement at home and will be provided transportation by either her son, or her sister, Kathi, . PLAN: Patient plans to return to her prior living arrangement at home at the time of discharge. No further SS intervention at this time, however, SW will remain available as needed.
--- NOTE | 2020-09-18 14:00 | NUR ---
IV removed. Catheter intact and site benign. Pressure and 4x4 applied to site. No bleeding noted.
--- NOTE | 2020-09-18 14:07 | NUR ---
Patient a/ox4, breathing even and unlabored, no sob noted. Needs attended. Kept comfortable. Patient discharged to home in stable condition. Written and verbal after care instructions given. Patient verbalizes understanding of instruction.
[2020-09-18 14:10] VITALS: BP 130/45
== END 2020-09-18 14:12 | disposition home or self-care (01) ==
LOC: ER 10:26
DX: R55 Syncope and collapse (principal); F41.0 Panic disorder [episodic paroxysmal anxiety]; I10 Essential (primary) hypertension; Z98.890 Other specified postprocedural states; Z79.899 Other long term (current) drug therapy
CPT/HCPCS: 36415; 71045; 80048; 80076; 84484; 84702; 85025; 93005; 96361; 96374; 96375; 99285; J2060; J2405 ×2; J7030

== ENCOUNTER 2020-12-20 08:30 | Emergency (ER) | payer MEDICAID, OTHER ==
[~2020-12-20] VITALS: Ht 142.2 cm; Wt 84.4 kg
[2020-12-20] MEDS ORDERED: KETOROLAC TROMETHAMINE 15 MG/ML VIAL ONE (08:50)
[2020-12-20] MEDS ORDERED: ONDANSETRON HCL/PF 4 MG/2 ML VIAL ONE (08:51)
[2020-12-20] MEDS ORDERED: MORPHINE SULFATE INJ 4 MG/ML DISP.SYRIN ONE (08:51)
[2020-12-20] MEDS ORDERED: ONDANSETRON HCL/PF 4 MG/2 ML VIAL IVP ONE (09:00)
[2020-12-20] MEDS ORDERED: IV NS 0.9% 1,000 ML BAG IV ONE (09:00)
[2020-12-20] MEDS ORDERED: KETOROLAC TROMETHAMINE INJ 30 MG/ML VIAL IV ONE (09:00)
[2020-12-20] MEDS ORDERED: MORPHINE SULFATE INJ 2 MG/ML DISP.SYRIN IV ONE (09:00)
--- NOTE | 2020-12-20 09:07 | NUR ---
TAKEN TO CT
--- NOTE | 2020-12-20 09:16 | NUR ---
THE PATIENT IS BACK FROM CT
[2020-12-20 09:46] LABS: ALBUMIN 3.6 g/dL (3.4-5.0); BILIRUBIN,DIRECT 0.1 mg/dL (0.0-0.2); BILIRUBIN,TOTAL 0.4 mg/dL (0.2-1.0); CALCIUM, SERUM 8.7 mg/dL (8.5-10.1); CREATININE 0.7 mg/dL (0.6-1.3); POTASSIUM 3.5 mmol/L (3.5-5.1); TOTAL PROTEIN, SERUM 7.8 g/dL (6.4-8.2)
[2020-12-20 09:47] LABS: BASOPHILS % (AUTO) 0.4 % (0.0-2.0); EOSINOPHILS % (AUTO) 4.1 % (0.0-6.0); HEMATOCRIT 40 % (33-45); HEMOGLOBIN 13.5 g/dL (11.5-14.8); LYMPHOCYTES # (AUTO) 1.8 K/uL (0.8-4.8); LYMPHOCYTES % (AUTO) 39.8 % (20.0-44.0); MEAN CORPUSCULAR HGB CONC 34 g/dl (31.0-36.0); MEAN CORPUSCULAR VOLUME 86 fL (82-100); MONOCYTES # (AUTO) 0.4 K/uL (0.1-1.30); MONOCYTES % (AUTO) 9.1 % (2.0-12.0); NEUTROPHILS # (AUTO) 2.1 K/uL (1.8-8.9); NEUTROPHILS % (AUTO) 46.6 % (43.0-81.0); PLATELET COUNT (AUTO) 223 K/uL (150-450); WHITE BLOOD COUNT (AUTO) 4.5 K/uL (4.3-11.0)
--- NOTE | 2020-12-20 10:01 | NUR ---
URINE COLLECTED AND SENT TO THE LAB
[2020-12-20] MEDS ORDERED: ONDA4TAB5 PO (10:13)
[2020-12-20] MEDS ORDERED: TAMS-12 PO (10:13)
[2020-12-20] MEDS ORDERED: KETO10TA2 PO (10:13)
[2020-12-20] MEDS ORDERED: HYDR-3976 PO ×2 (10:13→11:57)
[2020-12-20 10:34] VITALS: BP 151/102
[2020-12-20 10:40] LABS: BILIRUBIN,URINE NEGATIVE (NEGATIVE); COLOR,URINE YELLOW (YELLOW); LEUKOCYTE ESTERASE ,URINE NEGATIVE (NEGATIVE); NITRITE, URINE NEGATIVE (NEGATIVE); PH,URINE 6.5 (5.0-8.0); PROTEIN,URINE NEGATIVE (NEGATIVE); UGLUCOSE NEGATIVE (NEGATIVE); UROBILINOGEN,URINE 0.2 EU/dL (0.2)
[2020-12-20 10:57] LABS: BACTERIA,URINE Few /HPF (None Seen); SQUAMOUS EPITHELIAL CELL,UR Few /HPF (None Seen)
== END 2020-12-20 12:05 | disposition home or self-care (01) ==
LOC: ER 08:35
DX: N20.1 Calculus of ureter (principal); I10 Essential (primary) hypertension; F41.9 Anxiety disorder, unspecified; M19.90 Unspecified osteoarthritis, unspecified site; Z98.890 Other specified postprocedural states; Z79.899 Other long term (current) drug therapy
CPT/HCPCS: 36415; 74176; 80048; 80076; 81001; 83690; 84703; 85025; 96361; 96374; 96375; 99284; J1885; J2270; J2405; J7030

== ENCOUNTER 2020-12-22 10:53 | Emergency (ER) | payer MEDICAID ==
[~2020-12-22] VITALS: Ht 142.2 cm; Wt 84.4 kg
[~2020-12-22 10:53] MED LIST changes: +HYDR-3976 PO; +KETO10TA2 PO; +ONDA4TAB5 PO; +TAMS-12 PO
--- NOTE | 2020-12-22 10:56 | NUR ---
BISELF C/O FLANK PAIN X3DAYS, HX OF KIDNEY STONE, WAS HERE 2DAYS AGO. PT A/OX4. TOLERATING R/A WELL
[2020-12-22] MEDS ORDERED: ONDANSETRON HCL/PF - ER 4 MG/2 ML VIAL IV ONE (11:00)
[2020-12-22] MEDS ORDERED: IV NS 0.9% 1,000 ML BAG IV ONE (11:00)
[2020-12-22] MEDS ORDERED: MORPHINE SULFATE INJ 2 MG/ML DISP.SYRIN IV ONE (11:00)
[2020-12-22] MEDS ORDERED: ONDANSETRON HCL/PF 4 MG/2 ML VIAL ONE (11:01)
[2020-12-22] MEDS ORDERED: MORPHINE SULFATE INJ 4 MG/ML DISP.SYRIN ONE (11:02)
--- NOTE | 2020-12-22 11:13 | NUR ---
BLOOD SPECIMEN COLLECTED AND SENT TO THE LAB
[2020-12-22 11:38] LABS: BASOPHILS % (AUTO) 0.1 % (0.0-2.0); EOSINOPHILS % (AUTO) 2.1 % (0.0-6.0); HEMATOCRIT 40 % (33-45); HEMOGLOBIN 13.4 g/dL (11.5-14.8); LYMPHOCYTES # (AUTO) 1.3 K/uL (0.8-4.8); LYMPHOCYTES % (AUTO) 24.7 % (20.0-44.0); MEAN CORPUSCULAR HGB CONC 34 g/dl (31.0-36.0); MEAN CORPUSCULAR VOLUME 86 fL (82-100); MONOCYTES # (AUTO) 0.4 K/uL (0.1-1.30); MONOCYTES % (AUTO) 7.9 % (2.0-12.0); NEUTROPHILS # (AUTO) 3.3 K/uL (1.8-8.9); NEUTROPHILS % (AUTO) 65.2 % (43.0-81.0); PLATELET COUNT (AUTO) 214 K/uL (150-450); RED BLOOD CELL COUNT(AUTO) 4.63 MIL/uL (4.0-5.2); WHITE BLOOD COUNT (AUTO) 5.1 K/uL (4.3-11.0)
--- NOTE | 2020-12-22 11:55 | NUR ---
URINE COLLECTED AND SENT TO LAB
[2020-12-22] MEDS ORDERED: KETOROLAC TROMETHAMINE INJ 30 MG/ML VIAL ONE (11:59)
[2020-12-22] MEDS ORDERED: KETOROLAC TROMETHAMINE INJ 30 MG/ML VIAL IV ONE (12:00)
[2020-12-22 12:06] LABS: CALCIUM, SERUM 9.1 mg/dL (8.5-10.1); CREATININE 0.6 mg/dL (0.6-1.3); POTASSIUM 3.4 mmol/L (3.5-5.1)
[2020-12-22 12:07] LABS: BILIRUBIN,URINE NEGATIVE (NEGATIVE); COLOR,URINE YELLOW (YELLOW); LEUKOCYTE ESTERASE ,URINE NEGATIVE (NEGATIVE); NITRITE, URINE NEGATIVE (NEGATIVE); PROTEIN,URINE NEGATIVE (NEGATIVE); UGLUCOSE NEGATIVE (NEGATIVE); UROBILINOGEN,URINE 0.2 EU/dL (0.2)
[2020-12-22 13:24] LABS: SQUAMOUS EPITHELIAL CELL,UR Few /HPF (None Seen); WBC,URINE 0-2 /HPF (0-3)
[2020-12-22 13:25] LABS: BACTERIA,URINE Few /HPF (None Seen)
[2020-12-22] MEDS ORDERED: HYDR-3972 PO (13:30)
[2020-12-22 13:49] VITALS: BP 143/91
== END 2020-12-22 13:51 | disposition home or self-care (01) ==
LOC: ER 10:54
DX: N23 Unspecified renal colic (principal); I10 Essential (primary) hypertension; F41.9 Anxiety disorder, unspecified; M19.90 Unspecified osteoarthritis, unspecified site; Z98.890 Other specified postprocedural states; Z79.899 Other long term (current) drug therapy
CPT/HCPCS: 36415; 76770; 80048; 81001; 85025; 87086; 96361; 96374; 96375; 99284; J1885; J2270; J2405 ×2; J7030

== ENCOUNTER 2021-02-25 12:41 | Inpatient (IN) | payer MEDICAID ==
[~2021-02-25] VITALS: Ht 149.9 cm; Wt 83.5 kg
[~2021-02-25 12:41] MED LIST changes: +HYDR-3972 PO
[2021-02-25] MEDS ORDERED: HYDROMORPHONE INJ 2 MG/ML DISP.SYRIN IV STA (13:16)
[2021-02-25] MEDS ORDERED: HYDROMORPHONE 1 MG/1 ML DISP.SYRIN ONE ×3 (13:28→21:17)
[2021-02-25] MEDS ORDERED: IV NS 0.9% 1,000 ML BAG IV ONE (13:30)
[2021-02-25] MEDS ORDERED: LOSARTAN POTASSIUM 50 MG TABLET ONE (13:44)
[2021-02-25] MEDS ORDERED: LOSARTAN POTASSIUM 25 MG TABLET PO ONE (14:00)
[2021-02-25 14:08] LABS: BASOPHILS % (AUTO) 0.3 % (0.0-2.0); EOSINOPHILS % (AUTO) 2.1 % (0.0-6.0); HEMATOCRIT 42 % (33-45); HEMOGLOBIN 14.2 g/dL (11.5-14.8); LYMPHOCYTES # (AUTO) 1.6 K/uL (0.8-4.8); LYMPHOCYTES % (AUTO) 23.6 % (20.0-44.0); MEAN CORPUSCULAR HGB CONC 34 g/dl (31.0-36.0); MEAN CORPUSCULAR VOLUME 88 fL (82-100); MONOCYTES # (AUTO) 0.4 K/uL (0.1-1.30); MONOCYTES % (AUTO) 6.6 % (2.0-12.0); NEUTROPHILS # (AUTO) 4.5 K/uL (1.8-8.9); NEUTROPHILS % (AUTO) 67.4 % (43.0-81.0); PLATELET COUNT (AUTO) 233 K/uL (150-450); RED BLOOD CELL COUNT(AUTO) 4.77 MIL/uL (4.0-5.2); WHITE BLOOD COUNT (AUTO) 6.6 K/uL (4.3-11.0)
[2021-02-25 14:35] LABS: CALCIUM, SERUM 8.5 mg/dL (8.5-10.1); CREATININE 0.7 mg/dL (0.6-1.3); POTASSIUM 3.6 mmol/L (3.5-5.1)
[2021-02-25 14:42] LABS: ALBUMIN 3.6 g/dL (3.4-5.0); BILIRUBIN,DIRECT 0.1 mg/dL (0.0-0.2); BILIRUBIN,TOTAL 0.4 mg/dL (0.2-1.0); TOTAL PROTEIN, SERUM 8.1 g/dL (6.4-8.2)
[2021-02-25] MEDS ORDERED: KETOROLAC TROMETHAMINE INJ 30 MG/ML VIAL ONE (14:52)
[2021-02-25 14:59] LABS: BILIRUBIN,URINE NEGATIVE (NEGATIVE); COLOR,URINE YELLOW (YELLOW); LEUKOCYTE ESTERASE ,URINE NEGATIVE (NEGATIVE); NITRITE, URINE NEGATIVE (NEGATIVE); PH,URINE 7.5 (5.0-8.0); PROTEIN,URINE 30 mg/dl (NEGATIVE); UGLUCOSE NEGATIVE (NEGATIVE); UROBILINOGEN,URINE 0.2 EU/dL (0.2)
[2021-02-25] MEDS ORDERED: KETOROLAC TROMETHAMINE INJ 30 MG/ML VIAL IV ONE (15:00)
[2021-02-25] MEDS ORDERED: HYDR-4303 PO (16:00)
[2021-02-25 17:06] LABS: CALCIUM OXALATE CRYSTALS,UR Few /HPF (None Seen); SQUAMOUS EPITHELIAL CELL,UR Many /HPF (None Seen)
[2021-02-25 17:07] LABS: BACTERIA,URINE Few /HPF (None Seen); RBC,URINE 21-50 /HPF (0-2)
[2021-02-25] MEDS: HYDROMORPHONE 1 MG/1 ML DISP.SYRIN IV PRN ×2 (17:27→21:28)
[2021-02-25] MEDS ORDERED: ONDANSETRON HCL/PF 4 MG/2 ML VIAL ONE (21:21)
[2021-02-25] MEDS: IV NS 0.9% 1,000 ML IV PRN (21:28)
[2021-02-25] MEDS: ONDANSETRON HCL/PF 4 MG/2 ML VIAL IVP PRN (21:29)
[2021-02-25] MEDS ORDERED: ACETAMINOPHEN 325 MG TABLET PO PRN (21:30)
[2021-02-25] MEDS ORDERED: KETOROLAC TROMETHAMINE INJ 30 MG/ML VIAL IM PRN (21:30)
[2021-02-25] MEDS ORDERED: LORATADINE 10 MG TABLET PO PRN (21:30)
[2021-02-25] MEDS: HYDROXYCHLOROQUINE 200 MG TABLET PO SCH (21:30)
[2021-02-25] MEDS ORDERED: DOCUSATE SODIUM 100 MG CAPSULE PO PRN (21:30)
[2021-02-25] MEDS ORDERED: ATORVASTATIN 10 MG TABLET ONE (22:48)
[2021-02-26] MEDS: KETOROLAC TROMETHAMINE INJ 30 MG/ML VIAL IV SCH ×4 (00:30→18:00)
[2021-02-26 00:45] VITALS: BP 143/86
[2021-02-26] MEDS: IV NS 0.9% 1,000 ML IV PRN (00:47)
[2021-02-26] MEDS ORDERED: PANTOPRAZOLE 40 MG VIAL ONE (05:47)
[2021-02-26 06:29] LABS: BASOPHILS % (AUTO) 0.4 % (0.0-2.0); HEMATOCRIT 39 % (33-45); HEMOGLOBIN 13.3 g/dL (11.5-14.8); LYMPHOCYTES # (AUTO) 1.5 K/uL (0.8-4.8); LYMPHOCYTES % (AUTO) 26.7 % (20.0-44.0); MEAN CORPUSCULAR HGB CONC 34 g/dl (31.0-36.0); MEAN CORPUSCULAR VOLUME 87 fL (82-100); MONOCYTES # (AUTO) 0.4 K/uL (0.1-1.30); MONOCYTES % (AUTO) 7.3 % (2.0-12.0); NEUTROPHILS # (AUTO) 3.5 K/uL (1.8-8.9); NEUTROPHILS % (AUTO) 64.6 % (43.0-81.0); PLATELET COUNT (AUTO) 217 K/uL (150-450); RED BLOOD CELL COUNT(AUTO) 4.44 MIL/uL (4.0-5.2); WHITE BLOOD COUNT (AUTO) 5.4 K/uL (4.3-11.0)
[2021-02-26 06:51] LABS: CALCIUM, SERUM 8.2 mg/dL (8.5-10.1); CREATININE 0.6 mg/dL (0.6-1.3); MAGNESIUM 2.1 mg/dL (1.8-2.4); POTASSIUM 3.4 mmol/L (3.5-5.1)
[2021-02-26 08:00] VITALS: BP 110/75
[2021-02-26] MEDS: PANTOPRAZOLE 40 MG VIAL IV SCH (08:31)
[2021-02-26] MEDS: DULOXETINE HCL 30 MG CAPSULE.DR PO SCH (08:32)
[2021-02-26] MEDS ORDERED: ERGOCALCIFEROL (VITAMIN D 2) 50,000 UNIT CAPSULE PO SCH (09:00)
[2021-02-26] MEDS: OLOPATADINE HCL 0.1% OPHTH BOTTLE EACHEYE SCH (09:55)
[2021-02-26] MEDS ORDERED: POTASSIUM CHLORIDE 20 MEQ TAB.PRT.SR PO SCH (10:00)
[2021-02-26] MEDS: HYDROXYCHLOROQUINE 200 MG TABLET PO SCH ×2 (10:08→17:00)
[2021-02-26] MEDS ORDERED: ANESTHESIA TRAY IN PYXIS 1 EA TRAY MC ONE (13:11)
[2021-02-26 16:00] VITALS: BP 143/93
[2021-02-26] MEDS ORDERED: FENTANYL PF 100MCG/2ML AMPUL ONE (17:24)
[2021-02-26] MEDS ORDERED: FAMOTIDINE/PF INJ 20 MG/2 ML VIAL IV ONE (17:27)
[2021-02-26] MEDS ORDERED: hydrALAZINE HCL IV 20 MG VIAL ONE (18:43)
[2021-02-26 20:00] VITALS: BP 139/76
[2021-02-26] MEDS: HYDROMORPHONE INJ 2 MG/ML DISP.SYRIN IV PRN (21:24)
[2021-02-27] MEDS: KETOROLAC TROMETHAMINE INJ 30 MG/ML VIAL IV SCH ×3 (00:19→12:33)
[2021-02-27] MEDS: IV NS 0.9% 1,000 ML IV PRN (03:01)
[2021-02-27] MEDS: HYDROMORPHONE INJ 2 MG/ML DISP.SYRIN IV PRN ×2 (03:05→08:54)
[2021-02-27 06:34] LABS: CALCIUM, SERUM 8.7 mg/dL (8.5-10.1); CREATININE 0.5 mg/dL (0.6-1.3); POTASSIUM 3.7 mmol/L (3.5-5.1)
[2021-02-27 08:00] VITALS: BP 168/96
[2021-02-27] MEDS: ONDANSETRON HCL/PF 4 MG/2 ML VIAL IVP PRN (08:53)
[2021-02-27] MEDS: PANTOPRAZOLE 40 MG VIAL IV SCH (08:53)
[2021-02-27] MEDS: DULOXETINE HCL 30 MG CAPSULE.DR PO SCH (08:53)
[2021-02-27] MEDS: HYDROXYCHLOROQUINE 200 MG TABLET PO SCH (08:57)
[2021-02-27] MEDS: OLOPATADINE HCL 0.1% OPHTH BOTTLE EACHEYE SCH (08:57)
[2021-02-27] MEDS ORDERED: TAMS-12 PO (12:04)
[2021-02-27] MEDS ORDERED: LEVO250T59 PO (12:08)
[2021-02-27 15:50] VITALS: BP 141/79
[2021-02-28] MEDS ORDERED: PANTOPRAZOLE 40 MG TABLET.DR PO SCH (07:30)
== END 2021-02-27 15:00 | disposition home or self-care (01) | DRG 465 ==
LOC: ER 12:43 → TRANSITION 20:40 → TELE 23:00 → MED 02-26 00:24
PROVIDERS: ADMIT Nurse Practitioner Acute Care; ATTEND Internal Medicine
PROC: 0T768DZ Dilation of Right Ureter with Intraluminal Device, Via Natural or Artificial Opening Endoscopic (ICD-10-PCS; principal; 2021-02-26)
DX: N13.2 Hydronephrosis with renal and ureteral calculous obstruction (principal); E66.9 Obesity, unspecified; F41.9 Anxiety disorder, unspecified; I10 Essential (primary) hypertension; M19.90 Unspecified osteoarthritis, unspecified site; Z98.84 Bariatric surgery status; Z79.899 Other long term (current) drug therapy; R31.9 Hematuria, unspecified; R79.89 Other specified abnormal findings of blood chemistry; M06.9 Rheumatoid arthritis, unspecified; Z90.710 Acquired absence of both cervix and uterus; Z98.890 Other specified postprocedural states; F32.A Depression, unspecified; Z87.442 Personal history of urinary calculi; K59.00 Constipation, unspecified
CPT/HCPCS: 36415; 74018; 80048-TC; 80061-TC; 80076-TC; 81001; 83690-TC; 83735-TC; 84100-TC; 84702-TC; 85025-TC; 87081-TC; 87086-TC; A4217; C1769; C2617; C9113; C9803; G0378; J0330; J0360; J0690; J1100; J1170; J1885; J2405; J2704; J2765; J3010; J3490; J7030

== ENCOUNTER 2021-03-02 17:56 | Emergency (ER) | payer MEDICAID ==
[~2021-03-02] VITALS: Ht 147.3 cm; Wt 79.4 kg
[~2021-03-02 17:56] MED LIST changes: -DIPH50CA38 PO; -HYDR-3972 PO; -HYDR-3976 PO; +HYDR-4303 PO; -KETO10TA2 PO; +LEVO250T59 PO; -LISI10TA29 PO; -ONDA4TAB5 PO; -TRAM50TA2 PO
--- NOTE | 2021-03-02 17:56 | NUR ---
PT BIB SON C/O R FLANK PAIN X 2 DAYS. PT IS AAOX4, NOT IN RESPIRATORY DISTRESS, V/S STABLE, KEPT RESTED AND COMFORTABLE. WILL COTNINUE TO MONITOR.
[2021-03-02 18:01] VITALS: BP 141/90
--- NOTE | 2021-03-02 18:21 | NUR ---
Urine sample obtained and sent to lab
--- NOTE | 2021-03-02 19:12 | NUR ---
AT BEDSIDE FOR EVAL.
[2021-03-02] MEDS ORDERED: HYDR-4303 PO (19:18)
[2021-03-02] MEDS ORDERED: HYDROCODONE/APAP 5/325MG TABLET ONE (19:21)
--- NOTE | 2021-03-02 19:27 | NUR ---
Patient discharged to home in stable condition. Written and verbal after care instructions given. Patient verbalizes understanding of instruction.
[2021-03-02] MEDS ORDERED: HYDROCODONE/APAP 5/325MG TABLET PO ONE (19:30)
== END 2021-03-02 19:28 | disposition home or self-care (01) ==
LOC: ER 17:59
DX: R10.9 Unspecified abdominal pain (principal); I10 Essential (primary) hypertension; M19.90 Unspecified osteoarthritis, unspecified site; F41.9 Anxiety disorder, unspecified; Z87.442 Personal history of urinary calculi; Z90.710 Acquired absence of both cervix and uterus; Z96.0 Presence of urogenital implants; Z98.84 Bariatric surgery status; Z79.891 Long term (current) use of opiate analgesic; Z79.2 Long term (current) use of antibiotics; Z79.83 Long term (current) use of bisphosphonates

== ENCOUNTER 2023-03-11 06:03 | Emergency (ER) | payer MEDICAID, OTHER ==
[~2023-03-11] VITALS: Ht 149.9 cm; Wt 77.1 kg
[2023-03-11] MEDS ORDERED: KETOROLAC TROMETHAMINE 15 MG/ML VIAL ONE (06:49)
[2023-03-11] MEDS: KETOROLAC TROMETHAMINE 15 MG/ML VIAL IV ONE (06:52)
[2023-03-11 07:05] LABS: BASOPHILS % (AUTO) 0.2 % (0.0-2.0); EOSINOPHILS # (AUTO) 0.1 K/uL (0.0-0.7); EOSINOPHILS % (AUTO) 0.7 % (0.0-6.0); HEMATOCRIT 41 % (33-45); HEMOGLOBIN 14.3 g/dL (11.5-14.8); LYMPHOCYTES # (AUTO) 3.6 K/uL (0.8-4.8); LYMPHOCYTES % (AUTO) 45.7 % (20.0-44.0); MEAN CORPUSCULAR HEMOGLOBIN 31 PG (26.0-33.0); MEAN CORPUSCULAR HGB CONC 35 g/dl (31.0-36.0); MEAN CORPUSCULAR VOLUME 87 fL (82-100); MONOCYTES # (AUTO) 0.6 K/uL (0.1-1.30); MONOCYTES % (AUTO) 7.9 % (2.0-12.0); NEUTROPHILS # (AUTO) 3.6 K/uL (1.8-8.9); NEUTROPHILS % (AUTO) 45.5 % (43.0-81.0); PLATELET COUNT (AUTO) 244 K/uL (150-450); RED BLOOD CELL COUNT(AUTO) 4.66 MIL/uL (4.0-5.2); RED CELL DISTRIBUTION WIDTH 14.1 % (11.5-15.0); WHITE BLOOD COUNT (AUTO) 7.8 K/uL (4.3-11.0)
[2023-03-11 07:42] LABS: CALCIUM, SERUM 8.9 mg/dL (8.5-10.1); CREATININE 0.7 mg/dL (0.6-1.3); POTASSIUM 3.4 mmol/L (3.5-5.1)
[2023-03-11 07:47] LABS: ALBUMIN 3.4 g/dL (3.4-5.0); BILIRUBIN,DIRECT 0.1 mg/dL (0.0-0.2); BILIRUBIN,TOTAL 0.3 mg/dL (0.2-1.0); TOTAL PROTEIN, SERUM 7.8 g/dL (6.4-8.2)
[2023-03-11 08:42] LABS: APPEARANCE,URINE SLIGHTLY CLOUDY (CLEAR); BILIRUBIN,URINE NEGATIVE (NEGATIVE); BLOOD, URINE 2+ Ery/uL (NEGATIVE); COLOR,URINE YELLOW (YELLOW); KETONES,URINE TRACE mg/dL (NEGATIVE); LEUKOCYTE ESTERASE ,URINE NEGATIVE (NEGATIVE); NITRITE, URINE NEGATIVE (NEGATIVE); PROTEIN,URINE NEGATIVE (NEGATIVE); UGLUCOSE NEGATIVE (NEGATIVE); UROBILINOGEN,URINE 0.2 EU/dL (0.2)
[2023-03-11 08:44] LABS: PREGNANCY TEST URINE QUAL NEGATIVE (NEGATIVE)
[2023-03-11 08:57] LABS: ADD URINE CULTURE NO; BACTERIA,URINE Few /HPF (None Seen); SQUAMOUS EPITHELIAL CELL,UR Few /HPF (None Seen)
[2023-03-11 08:58] LABS: CALCIUM OXALATE CRYSTALS,UR Moderate /HPF (None Seen)
[2023-03-11] MEDS ORDERED: PHEN-704 PO (10:35)
[2023-03-11 10:47] VITALS: BP 150/81; TEMP 97.5; O2SAT 99
== END 2023-03-11 10:47 | disposition home or self-care (01) ==
LOC: ER 06:18
DX: R10.30 Lower abdominal pain, unspecified (principal); I10 Essential (primary) hypertension; R10.2 Pelvic and perineal pain; Z98.890 Other specified postprocedural states; Z79.899 Other long term (current) drug therapy
CPT/HCPCS: 99285; 74176; 96374; 85025; 80048; 87086; 83690; 80076; 84703; 81001; 36415; J1885

== ENCOUNTER 2024-01-11 23:08 | Emergency (ER) | payer MEDICAID, OTHER ==
[~2024-01-11] VITALS: Ht 157.5 cm; Wt 79.4 kg
[~2024-01-11 23:08] MED LIST changes: +PHEN-704 PO
[2024-01-11 23:51] VITALS: BP 195/104; TEMP 98.8
[2024-01-12] MEDS ORDERED: LORAZEPAM 0.5 MG TABLET ONE (00:19)
[2024-01-12] MEDS ORDERED: KETOROLAC TROMETHAMINE INJ 30 MG/ML VIAL ONE (00:19)
[2024-01-12] MEDS ORDERED: CYCLOBENZAPRINE 10 MG TABLET ONE (00:20)
[2024-01-12] MEDS: LORAZEPAM 0.5 MG TABLET PO ONE (00:28)
[2024-01-12] MEDS: CYCLOBENZAPRINE 10 MG TABLET PO ONE (00:28)
[2024-01-12] MEDS: KETOROLAC TROMETHAMINE INJ 60 MG/2 ML VIAL IM ONE (00:28)
[2024-01-12 01:26] VITALS: O2SAT 98
== END 2024-01-12 01:27 | disposition home or self-care (01) ==
LOC: ER 23:11
DX: F41.0 Panic disorder [episodic paroxysmal anxiety] (principal); I10 Essential (primary) hypertension; Z90.710 Acquired absence of both cervix and uterus; V89.2XXA Person injured in unspecified motor-vehicle accident, traffic, initial encounter; Y93.89 Activity, other specified; Y92.410 Unspecified street and highway as the place of occurrence of the external cause; Y99.8 Other external cause status
CPT/HCPCS: 99283; 96372; 93005; J1885